=== PATIENT | female | born 1970 | race Caucasian/White ===

== ENCOUNTER 2021-05-22 17:41 | Emergency (ER) | payer OTHER, SELFPAY ==
[2021-05-22 17:48] VITALS: BP 157/74; PULSE 75; RESP 16; TEMP 36.7; O2SAT 97; BMI 38.7
[2021-05-22 17:49] VITALS: PULSE 94; O2SAT 97
[2021-05-22 17:50] VITALS: BP 157/74; PULSE 94; O2SAT 96
--- NOTE | 2021-05-22 17:52 | DI.RAD.S_ITS ---
PROCEDURE: XR ANKLE RT MIN 3V INDICATIONS: ankle injury TECHNIQUE: 3 views of the ankle were acquired. COMPARISON: None. FINDINGS: Bones: No fractures or dislocations. Ankle mortise is normally aligned. No suspicious bony lesions. Well-defined plantar calcaneal enthesophyte is seen. Soft tissues: Mild ankle soft tissue swelling is seen. No tibiotalar joint effusion. Achilles tendon appears normal. IMPRESSION: Mild ankle soft tissue swelling. No gross acute ankle fracture or dislocation. Well-defined plantar calcaneal enthesophyte. Dictated by: Jorge Luis Mohamud M.D. on 05/22/2021 at 18:13 Approved by: Jorge Luis Mohamud M.D. on 05/22/2021 at 18:14
--- NOTE | 2021-05-22 18:28 | ED_ITS ---
HPI - Extremity Injury (Lower) General Chief Complaint: Extremity Injury, Lower Stated Complaint: rt foot injury s/p fall this am Time Seen by Provider: 05/22/21 18:06 Source: patient Mode of arrival: Wheelchair Limitations: no limitations History of Present Illness HPI Narrative: Patient here with . Earlier today was stepping out of her van and lost her footing on the package car driver side. Twisted her right foot and ankle. Mostly pain to the proximal lateral foot. Has sprained her ankle and foot before but more painful this time. Says has iced and elevated her foot. Has taken Aleve. Cannot take ibuprofen. Pain continues. Touching and attempts for weight-bearing increases pain. No numbness tingling or weakness. Skin is intact. There is bruising to the lateral proximal foot. Related Data Allergies Allergy/AdvReac Type Severity Reaction Status Date / Time No Known Drug Allergies Allergy Verified 05/22/21 17:53 Review of Systems Review of Systems Narrative: GENERAL: Denies chills, fatigue, malaise, fever, sweats. HEENT: Denies sinus pain, ear pain, sore throat RESPIRATORY: Denies dyspnea, cough CARDIOVASCULAR: Denies chest pain, palpitations GASTROINTESTINAL: Denies nausea, vomiting, abdominal pain : Denies dysuria, frequency, hematuria MUSCULOSKELETAL: Complain muscle or bony pain SKIN: Denies rash, skin lesions NEUROLOGIC: Denies weakness, numbness Patient History Social History Smoking Status: Never smoker Smoking Status: Never smoker alcohol intake frequency: holidays/special occasions only Substance Use Type: does not use Exam Narrative Exam Narrative: GENERAL: in no distress, not toxic not dyspneic HEAD: Normocephalic. EXTREMITIES: No gross deformities. Examination right lower extremity nontender knee. Foot is warm soft and pink with strong pedal pulse and light touch active foot and toes. Limited flexion extension at the ankle due to pain. No gross deformity. There is edema to the lateral ankle. However there is more tenderness to the proximal lateral foot with bruising below the lateral malleolus. Mild tenderness to the lateral ankle. NEURO: AOx4. SKIN: Warm and dry PSYCH: Not anxious, is cooperative Initial Vital Signs Initial Vital Signs: Vital Signs Temperature 98.1 F 05/22/21 17:48 Pulse Rate 75 05/22/21 17:48 Respiratory Rate 16 05/22/21 17:48 Blood Pressure 157/74 H 05/22/21 17:48 Pulse Oximetry 97 05/22/21 17:48 Procedures Orthopedic Splinting/Casting Injury #1: Time of procedure: 19:30 Lower Extremity Injury Location: ankle Lower Extremity Immobilizer: AirCast Post splinting neuro exam: intact Post splinting vascular exam: intact Placed by: Nursing Additional Comments: Aircast ankle splint with Anthony wrap right ankle Course Course Course Narrative: No new issues during course of stay. Orders Ordered: Discontinued Medications Hydrocodone Bitart/Acetaminophen (Hydrocodone/Acet 5/325 Tablet) 2 tab PO NOW ONE Stop: 05/22/21 18:43 Last Admin: 05/22/21 18:53 Dose: 2 tab Documented by: [email or web address] Ondansetron HCl (Ondansetron 4 Mg Odt) 4 mg SL NOW ONE Stop: 05/22/21 18:43 Last Admin: 05/22/21 18:54 Dose: 4 mg Documented by: CTRZION Reevaluation(s) Reevaluation #1: Spoke with patient results. Pain improved with pain medication here. She does not want prescription for narcotics. She states she will take Aleve and Tylenol. Time: 19:26 Vital Signs Vital signs: Vital Signs - 8 hr 05/22/21 17:48 Temperature 98.1 F Pulse Rate 75 Respiratory Rate 16 Blood Pressure 157/74 H Pulse Oximetry 97 MDM - Extremity Injury (Lower) Differential Diagnosis Differential diagnosis: Likely ankle sprain and strain, ankle fracture and other (Foot sprain/fracture) Imaging Data Extremity x-ray #1: Radiologist's Impression: [address] [id number] ReportSigned Patient: Ruth Voss LMR#: [id number]: 1970Acct:[id number]/Sex: 50 / FDate of Service: 05/22/21Loc: EDAccession Number: [id number] Procedure: XR foot RT min 3V Ordering Provider: Riki Tinsley MD PROCEDURE: XR FOOT RT MIN 3V INDICATIONS: Pain/injury TECHNIQUE: 3 views of the foot were acquired. COMPARISON: None. FINDINGS: Bones: No fractures or dislocations. Well-defined plantar and dorsal calcaneal enthesophytes are seen. No suspicious bony lesions. Soft tissues: No tibiotalar joint effusion. Achilles tendon appears normal. IMPRESSION: No acute right foot fracture or dislocation. Small plantar and dorsal calcaneal enthesophytes. No gross soft tissue abnormality. Dictated by: Jorge Luis Mohamud M.D. on 05/22/2021 at 18:51 Approved by: Jorge Luis Mohamud M.D. on 05/22/2021 at 18:52 Extremity x-ray #2: Radiologist's Impression: [address] [id number] ReportSigned Patient: Ruth Voss LMR#: [id number]: 05/1971Acct:[id number]/Sex: 50 / FDate of Service: 05/22/21Loc: EDAccession Number: [id number] Procedure: XR ankle RT min 3V Ordering Provider: Gee Razo D.O. PROCEDURE: XR ANKLE RT MIN 3V INDICATIONS: ankle injury TECHNIQUE: 3 views of the ankle were acquired. COMPARISON: None. FINDINGS: Bones: No fractures or dislocations. Ankle mortise is normally aligned. No suspicious bony lesions. Well-defined plantar calcaneal enthesophyte is seen. Soft tissues: Mild ankle soft tissue swelling is seen. No tibiotalar joint effusion. Achilles tendon appears normal. IMPRESSION: Mild ankle soft tissue swelling. No gross acute ankle fracture or dislocation. Well-defined plantar calcaneal enthesophyte. Dictated by: Jorge Luis Mohamud M.D. on 05/22/2021 at 18:13 Approved by: Jorge Luis Mohamud M.D. on 05/22/2021 at 18:14 [facility] Narrative Medical decision making narrative: Appropriate for discharge home. Exam and imaging reassuring. Patient tolerated splint very well. Follow-up orthopedics given. Return precautions reviewed with patient. Patient aware hairline fracture may not be seen on day 1 and may need repeat imaging in 7-10 days if not improving. Discharge Plan Departure Patient Disposition: Home Clinical Impression: Ankle sprain and strain Instructions: DI for Ankle Sprain Activity Restrictions/Additional Instructions: No driving or operating machinery with injury to the ankle and foot. Call provided orthopedic office tomorrow for office recheck within a week. Use crutches and ankle splint for comfort. Continue home Aleve or Tylenol for pain. Ice and elevate ankle and foot 20 minutes at a time as needed for pain and swelling. Return if worse if any questions or concerns Referrals: Cinda Swenson MD [Physician] -
[2021-05-22] MEDS: HYDROCODONE/ACET 5/325 TABLET 2 TAB PO (18:53)
[2021-05-22] MEDS: ONDANSETRON 4 MG ODT SL (18:54)
[2021-05-22 19:33] VITALS: PULSE 79; O2SAT 96
[2021-05-22 19:34] VITALS: BP 151/77; PULSE 82; O2SAT 97
== END 2021-05-22 19:42 | disposition home or self-care (01) ==
PROVIDERS: Emergency Provider Emergency Medicine
DX: S93.401A Sprain of unspecified ligament of right ankle, initial encounter (principal); S96.911A Strain of unspecified muscle and tendon at ankle and foot level, right foot, initial encounter; X50.1XXA Overexertion from prolonged static or awkward postures, initial encounter
CPT/HCPCS: 73610; 73630; 99283

== ENCOUNTER 2024-03-25 17:42 | Emergency (ER) | payer OTHER, SELFPAY ==
[2024-03-25 17:56] VITALS: BP 175/91; PULSE 113; RESP 17; TEMP 37.4; O2SAT 97; BMI 43.0
--- NOTE | 2024-03-25 17:58 | DI.RAD.S_ITS ---
PROCEDURE: XR CHEST 1V INDICATIONS: chest pain TECHNIQUE: One view of the chest was acquired. COMPARISON: None. FINDINGS: Surgical changes and devices: None. Lungs and pleura: No consolidation. Question pulmonary vasculature engorgement. No pleural effusions or pneumothorax. Mediastinum: Mediastinal contours appear normal. Heart size is within normal limits. Bones and chest wall: No suspicious bony lesions. Overlying soft tissues appear unremarkable. IMPRESSION: Question pulmonary vasculature engorgement. Dictated by: Naif Kowalski M.D. on 03/25/2024 at 20:18 Approved by: Naif Kowalski M.D. on 03/25/2024 at 20:19
[2024-03-25 18:19] LABS: Add Manual Diff / Slide Review NO; Basophils Absolute Auto 100 /uL (0-100); Basophils Percent Auto 1.1 % (0-2); Eosinophils Absolute Auto 200 /uL (0-450); Eosinophils Percent Auto 1.3 % (2-4); Hematocrit 40.7 % (36-46); Hemoglobin 14.1 g/dL (12.0-16.0); Lymphocytes Absolute Auto 1700 /uL (1100-4500); Lymphocytes Percent Auto 13.8 % (25-40); Mean Corpuscular HGB Conc 34.6 % (30-36); Mean Corpuscular Hemoglobin 29.6 PG (26-34); Mean Corpuscular Volume 85.6 fL (80-100); Monocytes Absolute Auto 900 /uL (0-900); Monocytes Percent Auto 7.5 % (3-14); Neutrophils Absolute Auto 9300 /uL (1500-7000); Neutrophils Percent Auto 76.3 % (50-75); Platelet Count 306 X10^3/uL (150-400); Red Blood Cell Count 4.76 X10^6/uL (4.0-5.2); Red Cell Distribution Width 13.6 % (11.6-14.8); White Blood Cell Count 12.2 X10^3/uL (4.5-11.0)
[2024-03-25 18:27] LABS: INR 1.1 (0.9-1.3); Prothrombin Time 12.2 SECONDS (9.4-12.5)
[2024-03-25 18:30] LABS: PTT Partial Thromboplastin Tim 38 SECONDS (25.1-36.5)
[2024-03-25 18:35] LABS: Alanine Aminotransferase 64 IU/L (<35); Albumin 4.5 g/dL (3.5-5.0); Albumin Globulin Ratio 1.5 (1.0-2.8); Alkaline Phosphatase 95 U/L (38-126); Aspartate Aminotransferase 38 IU/L (14-36); BUN Creatinine Ratio 18.1 (6-22); Bilirubin Total 0.9 mg/dL (0.2-1.3); Blood Urea Nitrogen 13 mg/dL (7-17); Calcium 9.1 mg/dL (8.4-10.2); Carbon Dioxide 26 mmol/L (22-32); Chloride 103 mmol/L (98-107); Creatine Kinase 116 U/L (30-135); Estimated Glomerular Filt Rate > 60 mL/min (>60); Globulin 3.1 g/dL (1.7-4.1); Glucose 108 mg/dL (70-100); HEMOLYSIS < 15 (0-50); Lipase 54 U/L (23-300); Potassium 4.4 mmol/L (3.4-5.1); Sodium 137 mmol/L (137-145); Total Protein 7.6 g/dL (6.3-8.2)
[2024-03-25 18:46] LABS: Troponin I < 0.012 ng/mL (0.01-0.034)
[2024-03-25 20:23] LABS: Adenovirus Not Detected (Not Detect); B. parapertussis Not Detected (Not Detecte); Bordetella pertussis Not Detected (Not Detect); Chlamydophila pneumoniae Not Detected (Not Detect); Coronavirus 229E Not Detected (Not Detect); Coronavirus HKU1 Not Detected (Not Detect); Coronavirus NL 63 Not Detected (Not Detect); Coronavirus OC43 Not Detected (Not Detect); Human Metapneumovirus Detected (Not Detect); Human Rhinovirus/Enterovirus Not Detected (Not Detect); Influenza A Not Detected (Not Detect); Influenza B Not Detected (Not Detect); Mycoplasma pneumoniae Not Detected (Not Detect); Parainfluenza Virus 1 Not Detected (Not Detect); Parainfluenza Virus 2 Not Detected (Not Detect); Parainfluenza Virus 3 Not Detected (Not Detect); Parainfluenza Virus 4 Not Detected (Not Detect); Respiratory Syncytial Virus Not Detected (Not Detect); SARS- CoV-2 Not Detected (Not Detecte)
--- NOTE | 2024-03-25 20:32 | ED_ITS ---
HPI - Chest Pain General Chief Complaint: Chest Pain Stated Complaint: cough, vomiting, sob Time Seen by Provider: 03/25/24 18:58 Source: patient Mode of arrival: Ambulatory Limitations: no limitations History of Present Illness HPI narrative: 53-year-old female presents with nonproductive cough for 1 week. Patient states that her cough is nonproductive, constant, not controlled with [id number] cough and cold medications. Patient states that today she started to feel worse and felt like her heart rate was elevated, prompting her to be evaluated in the emergency department. Chest pressure felt only after prolonged coughing. Patient states she was occasionally coughs so hard that she will vomit. Numerous family members sick with similar symptoms at home. Related Data Previous Rx's Medication Instructions Recorded benzonatate 200 mg capsule 200 mg PO BID-TID PRN cough #30 03/25/24 caps methylprednisolone 4 mg tablets in See Rx Instructions PO .COMPLEX 03/25/24 a dose pack (Medrol (Maged)) #21 ea Allergies Allergy/AdvReac Type Severity Reaction Status Date / Time Penicillins Allergy Verified 03/25/24 17:56 Review of Systems Review of Systems Narrative: See HPI Patient History Social History Smoking Status: Never smoker Smoking Status: Never smoker alcohol intake frequency: holidays/special occasions only Substance Use Type: does not use Exam Initial Vital Signs Initial Vital Signs: Vital Signs Temperature 99.4 F 03/25/24 17:56 Pulse Rate 113 H 03/25/24 17:56 Respiratory Rate 17 03/25/24 17:56 Blood Pressure 175/91 H 03/25/24 17:56 Pulse Oximetry 97 03/25/24 17:56 Oxygen Delivery Method Room Air 03/25/24 17:56 Const: Awake, alert, no acute distress, nontoxic appearing Cardiac: Tachycardia, regular rhythm RESP: unlabored, mild inspiratory crackles bilateral bases, no wheezing GI: Soft, nontender, nondistended, no rebound, no guarding MSK: Atraumatic, full range of motion, pulses equal Skin: Warm, Dry, intact, no rashes Neuro: AO x3, CN II-XII grossly intact, moves all extremities Course Orders Ordered: Discontinued Medications Albuterol (Albuterol Hfa Prepack) 1 box [facility] ONE Stop: 03/25/24 21:55 Last Admin: 03/25/24 22:10 Dose: 1 box Documented By: ISIDRO Albuterol/Ipratropium (Albuterol/Ipratropium 3 Ml Ampul) 9 ml INH NOW ONE Stop: 03/25/24 21:08 Last Admin: 03/25/24 21:14 Dose: 9 ml Documented By: YORDY Benzonatate (Benzonatate 100 Mg Capsule) 200 mg PO NOW ONE Stop: 03/25/24 21:18 Last Admin: 03/25/24 22:10 Dose: 200 mg Documented By: ISIDRO Dexamethasone (Dexamethasone 10 Mg/Ml Vial) 10 mg IV NOW ONE Stop: 03/25/24 21:08 Last Admin: 03/25/24 21:13 Dose: 10 mg Documented By: YORDY Vital Signs Vital signs: Vital Signs - 8 hr 03/25/24 17:56 Temperature 99.4 F Pulse Rate 113 H Respiratory Rate 17 Blood Pressure 175/91 H Pulse Oximetry 97 Oxygen Delivery Method Room Air MDM - Chest Pain Lab Data 03/25/24 18:05 03/25/24 18:05 Labs: Lab Results 03/25/24 Range/Units 18:05 WBC 12.2 H (4.5-11.0) X10^3/uL RBC 4.76 (4.0-5.2) X10^6/uL Hgb 14.1 (12.0-16.0) g/dL Hct 40.7 (36-46) % MCV 85.6 (80-100) fL MCH 29.6 (26-34) PG MCHC 34.6 (30-36) % RDW 13.6 (11.6-14.8) % Plt Count 306 (150-400) X10^3/uL Neut % (Auto) 76.3 H (50-75) % Lymph % (Auto) 13.8 L (25-40) % Roane % (Auto) 7.5 (3-14) % Eos % (Auto) 1.3 L (2-4) % Baso % (Auto) 1.1 (0-2) % Neut # (Auto) 9300 H (7060-2042) /uL Lymph # (Auto) 1700 (7473-7342) /uL Roane # (Auto) 900 (0-900) /uL Eos # (Auto) 200 (0-450) /uL Baso # (Auto) 100 (0-100) /uL PT 12.2 (9.4-12.5) SECONDS INR 1.1 (0.9-1.3) APTT 38 H (25.1-36.5) SECONDS Sodium 137 (137-145) mmol/L Potassium 4.4 (3.4-5.1) mmol/L Chloride 103 (98-107) mmol/L Carbon Dioxide 26 (22-32) mmol/L BUN 13 (7-17) mg/dL Creatinine 0.72 (0.52-1.04) mg/dL Estimated GFR > 60 (>60) mL/min BUN/Creatinine Ratio 18.1 (6-22) Glucose 108 H (70-100) mg/dL Calcium 9.1 (8.4-10.2) mg/dL Magnesium 2.0 (1.6-2.3) mg/dL Total Bilirubin 0.9 (0.2-1.3) mg/dL AST 38 H (14-36) IU/L ALT 64 H (<35) IU/L Alkaline Phosphatase 95 (38-126) U/L Total Creatine Kinase 116 (30-135) U/L Troponin I < 0.012 (0.01-0.034) ng/mL Total Protein 7.6 (6.3-8.2) g/dL Albumin 4.5 (3.5-5.0) g/dL Globulin 3.1 (1.7-4.1) g/dL Albumin/Globulin Ratio 1.5 (1.0-2.8) Lipase 54 (23-300) U/L Chlamy pneumoniae PCR Not detected (Not Detect) Adenovirus (PCR) Not detected (Not Detect) B.parapertussis DNA PCR Not detected (Not Detecte) Coronavirus OC43 (PCR) Not detected (Not Detect) Coronavirus HKU1 (PCR) Not detected (Not Detect) Coronavirus 229E (PCR) Not detected (Not Detect) SARS-CoV-2 (PCR) Not detected (Not Detecte) Coronavirus NL63 (PCR) Not detected (Not Detect) Human Metapneumovir PCR Detected H (Not Detect) Influenza Type A (PCR) Not detected (Not Detect) Influenza Type B (PCR) Not detected (Not Detect) M. pneumoniae (PCR) Not detected (Not Detect) Parainfluenza 1 (PCR) Not detected (Not Detect) Parainfluenza 2 (PCR) Not detected (Not Detect) Parainfluenza 3 (PCR) Not detected (Not Detect) Parainfluenza 4 (PCR) Not detected (Not Detect) RSV (PCR) Not detected (Not Detect) Entero/Rhino (PCR) Not detected (Not Detect) Imaging Data Chest x-ray: Radiologist's Impression: PROCEDURE: XR CHEST 1V INDICATIONS: chest pain TECHNIQUE: One view of the chest was acquired. COMPARISON: None. FINDINGS: Surgical changes and devices: None. Lungs and pleura: No consolidation. Question pulmonary vasculature engorgement. No pleural effusions or pneumothorax. Mediastinum: Mediastinal contours appear normal. Heart size is within normal limits. Bones and chest wall: No suspicious bony lesions. Overlying soft tissues appear unremarkable. IMPRESSION: Question pulmonary vasculature engorgement. Dictated by: Naif Kowalski M.D. on 03/25/2024 at 20:18 Approved by: Naif Kowalski M.D. on 03/25/2024 at 20:19 [facility] Narrative Medical decision making narrative: Nontoxic patient with persistent cough, somewhat worse today. Multiple family members sick at home with similar symptoms. Questionable velcro like crackles on deep inspiration and bilateral bases. Saturating well on room air. Coughs frequently in emergency department, nonproductive. Laboratory work is reviewed, patient tested positive for human metapneumovirus. Chest x-ray with ?questionable vascular engorgement?, however patient has no history of cardiac problems, does not have any signs of volume overload, symptoms are much more consistent with viral etiology. Patient given dose of steroids, and reported improvement in symptoms with nebulizer treatment. Patient states that she has had good response to albuterol therapy in the past with upper respiratory symptoms. Albuterol sent home with the patient. Patient likely has bronchitis following viral illness. Supportive measures counseled for home. Sara Tatum sent to pharmacy of choice. Discharge Plan Departure Patient Disposition: Home Clinical Impression: Acute bronchiolitis due to human metapneumovirus (hMPV) Instructions: DI for Acute Bronchitis Activity Restrictions/Additional Instructions: Take the cough medications and inhaler as needed for comfort. Follow up with your primary care doctor. Prescriptions: New benzonatate 200 mg capsule 200 mg PO BID-TID PRN (Reason: cough) Qty: 30 0RF methylprednisolone [Medrol (Maged)] 4 mg tablets,dose pack See Rx Instructions .ROUTE .COMPLEX Qty: 21 0RF Rx Instructions: orally per package directions Referrals: ProviderOmer [Primary Care Provider] - Stand Alone Forms: Patient Portal/API
[2024-03-25] MEDS: DEXAMETHASONE 10 MG/ML VIAL IV (21:13)
[2024-03-25] MEDS: ALBUTEROL/IPRATROPIUM 3 ML AMPUL 9 ML INH (21:14)
[2024-03-25 21:20] VITALS: PULSE 110; RESP 19
[2024-03-25 21:30] VITALS: PULSE 112; RESP 13
[2024-03-25 22:00] VITALS: PULSE 126; RESP 20; O2SAT 92
[2024-03-25 22:05] VITALS: BP 120/59; PULSE 120; O2SAT 93
[2024-03-25] MEDS: BENZONATATE 100 MG CAPSULE 200 MG PO (22:10)
[2024-03-25] MEDS: ALBUTEROL HFA PREPACK 1 BOX MISC (22:10)
== END 2024-03-25 22:15 | disposition home or self-care (01) ==
PROVIDERS: Emergency Medicine; Emergency Provider Emergency Medicine
DX: J21.1 Acute bronchiolitis due to human metapneumovirus (principal); R07.9 Chest pain, unspecified; Z20.822 Contact with and (suspected) exposure to COVID-19
CPT/HCPCS: 36415; 71045; 80053; 82550; 83690; 83735; 84484; 85025; 85610; 85730; 87633; 93005; 96374; 99284; J1100

== ENCOUNTER 2024-07-08 16:58 | Emergency (ER) | payer OTHER, SELFPAY ==
[2024-07-08 17:10] VITALS: BP 207/86; PULSE 91; RESP 18; TEMP 36.4; O2SAT 98; BMI 43.0
--- NOTE | 2024-07-08 17:24 | ED.FALL ---
HPI - Fall <Laura Estrella PA-C - Last Filed: 07/08/24 20:17> General Chief Complaint: Fall Stated Complaint: Fall, knee and ankle px Time Seen by Provider: 07/08/24 17:23 History of Present Illness HPI Narrative: 53-year-old obese woman presents with concern for left knee injury and right ankle injury. Patient was walking down her driveway to move a trash can out of the way of her vehicle and accidentally rolled her right ankle and then landed squarely on her left knee. She denies hitting her head loss of consciousness or any other injuries but has been having very severe left knee pain with some swelling and bruising present since she injured herself yesterday morning. She notes she feels her right ankle is likely sprained but it is not particularly painful and ?though it is swollen I have had worse I am mostly worried about my knee. Patient denies numbness or tingling in either extremity and has been ambulating with difficulty favoring her left knee. She has tried ibuprofen for pain relief with limited improvement of symptoms. She has been elevating and has tried icing. She denies any other complaints or concerns Related Data Previous Rx's Medication Instructions Recorded benzonatate 200 mg capsule 200 mg PO BID-TID PRN cough #30 03/25/24 caps methylprednisolone 4 mg tablets in See Rx Instructions PO .COMPLEX 03/25/24 a dose pack (Medrol (Maged)) #21 ea acetaminophen 300 mg-codeine 30 mg 1 tab PO Q8H PRN pain 3 days #10 07/08/24 tablet tabs Allergies Allergy/AdvReac Type Severity Reaction Status Date / Time Penicillins Allergy Verified 03/25/24 17:56 Review of Systems <Laura Estrella PA-C - Last Filed: 07/08/24 20:17> Review of Systems Narrative: See HPI Patient History <Laura Estrella PA-C - Last Filed: 07/08/24 20:17> Social History Smoking Status: Never smoker Smoking Status: Never smoker alcohol intake frequency: holidays/special occasions only Substance Use Type: does not use Exam <Laura Estrella PA-C - Last Filed: 07/08/24 20:17> Narrative Exam Narrative: GENERAL: [53] year old patient appears stated age. Well-developed patient, in mild distress. HEAD: Atraumatic. Normocephalic. EYES: Pupils equal round and reactive. Extraocular motions intact. No scleral icterus. No injection or drainage. ENT: Nose without bleeding, purulent drainage. Airway patent. NECK: Trachea midline. CARDIOVASCULAR: Regular rate and rhythm RESPIRATORY: No increased work of breathing or respiratory distress GASTROINTESTINAL: Abdomen soft, non-tender, nondistended. EXTREMITIES: The affected left knee there is tenderness at the lateral joint line, significant tenderness over the patella with visible purplish bruising and some swelling present about the anterior knee. Negative valgus and varus stress. Patient has significant pain with passive flexion greater than 30? the right ankle has swelling at the lateral malleolus and tenderness of the lateral malleolus. As well as the ATFL. ROM is reduced 2nd to pain and swelling. No of the edema or joint tenderness. NEURO: AOx3. SKIN: No rash or erythema of visible areas Initial Vital Signs Initial Vital Signs: Vital Signs Temperature 97.5 F L 07/08/24 17:10 Pulse Rate 91 H 07/08/24 17:10 Respiratory Rate 18 07/08/24 17:10 Blood Pressure 207/86 H 07/08/24 17:10 Pulse Oximetry 98 07/08/24 17:10 Oxygen Delivery Method Room Air 07/08/24 17:10 <Kaylah Neville DO - Last Filed: 07/09/24 03:08> Initial Vital Signs Initial Vital Signs: Vital Signs Temperature 97.5 F L 07/08/24 17:10 Pulse Rate 91 H 07/08/24 17:10 Respiratory Rate 18 07/08/24 17:10 Blood Pressure 207/86 H 07/08/24 17:10 Pulse Oximetry 98 07/08/24 17:10 Oxygen Delivery Method Room Air 07/08/24 17:10 Course <Laura Estrella PA-C - Last Filed: 07/08/24 20:17> Orders Ordered: Discontinued Medications Acetaminophen/Codeine Phosphate (Codeine/Acetaminophen 30/300 Tablet) 1 tab PO NOW ONE Stop: 07/08/24 19:03 Last Admin: 07/08/24 19:23 Dose: 1 tab Documented By: DAYNE Ketorolac Tromethamine (Ketorolac 30 Mg/Ml Vial) 30 mg IM NOW ONE Stop: 07/08/24 19:03 Last Admin: 07/08/24 19:23 Dose: 30 mg Documented By: DAYNE Vital Signs Vital signs: Vital Signs - 8 hr 07/08/24 17:10 07/08/24 18:28 Temperature 97.5 F L Pulse Rate 91 H Respiratory Rate 18 Blood Pressure 207/86 H 137/82 Pulse Oximetry 98 Oxygen Delivery Method Room Air <Kaylah Neville DO - Last Filed: 07/09/24 03:08> Orders Ordered: Discontinued Medications Acetaminophen/Codeine Phosphate (Codeine/Acetaminophen 30/300 Tablet) 1 tab PO NOW ONE Stop: 07/08/24 19:03 Last Admin: 07/08/24 19:23 Dose: 1 tab Documented By: DAYNE Ketorolac Tromethamine (Ketorolac 30 Mg/Ml Vial) 30 mg IM NOW ONE Stop: 07/08/24 19:03 Last Admin: 07/08/24 19:23 Dose: 30 mg Documented By: DAYNE Vital Signs Vital signs: Vital Signs - 8 hr 07/08/24 17:10 07/08/24 18:28 Temperature 97.5 F L Pulse Rate 91 H Respiratory Rate 18 Blood Pressure 207/86 H 137/82 Pulse Oximetry 98 Oxygen Delivery Method Room Air MDM - Fall <Laura Estrella PA-C - Last Filed: 07/08/24 20:17> Differential Diagnosis Differential diagnosis: Likely other (Sprain, strain, fracture) Imaging Data Extremity x-ray #1: My Impression: Agree with Radiology interpretation Radiologist's Impression: [address] [address] XRay Report Signed Patient: Ruth Voss MR#: [id number] : 1970 Acct:[id number] Age/Sex: 53 / F Date of Service: 07/08/24 Loc: ED Accession Number: [id number] Procedure: XR knee LT 3V Ordering Provider: Laura Estrella PA-C PROCEDURE: XR KNEE LT 3V INDICATIONS: fall with swelling and pain TECHNIQUE: 3 views of the knee were acquired. COMPARISON: None. FINDINGS: Bones: Mild degenerative changes. Patellar enthesopathy. No acute displaced fracture Soft tissues: Small amount joint effusion. There is also prepatellar swelling. IMPRESSION: Mild degenerative changes and patellar enthesopathy. Small joint effusion. Prepatellar swelling. If there is high concern for further derangement, consider MRI evaluation. Dictated by: Pablo Lloyd M.D. on 07/08/2024 at 18:05 Approved by: Pablo Lloyd M.D. on 07/08/2024 at 18:06 Extremity x-ray #2: My Impression: Agree with Radiology interpretation Radiologist's Impression: [address] [address] XRay Report Signed Patient: Ruth Voss MR#: [id number] : 1970 Acct:[id number] Age/Sex: 53 / F Date of Service: 07/08/24 Loc: ED Accession Number: [id number] Procedure: XR ankle RT min 3V Ordering Provider: Laura Estrella PA-C PROCEDURE: XR ANKLE RT MIN 3V INDICATIONS: fall with swelling and pain TECHNIQUE: 3 views of the ankle were acquired. COMPARISON: [facility], CR, XR ANKLE RT MIN 3V, 05/22/2021, 18:04. FINDINGS: Bones: Mild background degenerative changes. No acute displaced fracture or dislocation. The ankle mortise appears intact. Soft tissues: Plantar calcaneal enthesopathy. Diffuse soft tissue swelling particularly adjacent to the lateral malleolus. IMPRESSION: Mild background degenerative changes. Soft tissue swelling particularly adjacent to the lateral malleolus. No displaced osseous injury. Ligamentous injury is possible. If there is high concern for further derangement, consider MRI evaluation. Dictated by: Pablo Lloyd M.D. on 07/08/2024 at 18:06 Approved by: Pablo Lloyd M.D. on 07/08/2024 at 18:07 [facility] Narrative Medical decision making narrative: This is a generally well-appearing 53-year-old woman with obesity presenting with concern for left knee injury and right ankle injury sustained yesterday morning when she rolled her right ankle and landed on her left knee. X-rays obtained today show no evidence of fracture. Patient does have quite a bit of swelling and pain about the left knee but the joint appears stable on exam. Given she has sprain both her right ankle and also injured her left knee did advise her it may be good to follow up with Orthopedics for further evaluation as she may have prolonged healing time given injuries on both sides. Attempted to place the patient in an supportive air splint boot for her ankle however none available that fit the patient well of appropriate size. She prefers a Anthony wrap and this is placed today during her visit. Also she tries a short-leg knee immobilizer but also prefers an Anthony wrap for her knee. She is provided with crutches today which she has used previously with success. Advised regarding RI CE and being nonweightbearing as much as possible though this will be challenging given injuries of both the right ankle and the left knee. Given her pain she does receive a prescription for short course of Tylenol 3 and 1 dose of this in the emergency department as well as Toradol. Return precautions provided, follow-up plan discussed, all questions answered. Discharge Plan Departure Patient Disposition: Home Clinical Impression: Right knee sprain Qualifiers: Encounter type: initial encounter Involved ligament of knee: unspecified ligament Qualified Code(s): S83.91XA - Sprain of unspecified site of right knee, initial encounter Sprain of left ankle Qualifiers: Encounter type: initial encounter Involved ligament of ankle: anterior talofibular ligament Qualified Code(s): S93.492A - Sprain of other ligament of left ankle, initial encounter Instructions: DI for Knee Sprain Activity Restrictions/Additional Instructions: *You have been diagnosed with [knee sprain on the left, ankle sprain on the right] *What to do: *Please continue to take your regular medications as directed. [ 1] New medication prescriptions sent to your pharmacy: [Tylenol 3] [ ] New medication written as a paper prescription [ ] No new medications given *Please follow up with your primary care provider in 2-3 days, call for an appointment. Let them know you were seen in the Emergency Department and that we ask that you be seen in follow up. We will electronically transmit a record of today's note if your PCP is in our system. Your x-rays today do not show any evidence of fracture of either your left knee or your right ankle. You do have a ankle sprain which we wrapped with an Anthony wrap today after discussion with you. And we also wrapped your left knee in its position of comfort with a very slight bend. You are having quite a bit of pain in your knee you do have a good amount of swelling and some bruising present, and I did prescribe some pain medicine for you for the next couple of days to be used if needed. We also gave you a shot of medicine and 1 dose of Tylenol 3 today in the emergency department as most pharmacies are closed at this time. Use rest ice compression elevation treatment do please try to stay off of this knee especially and this ankle as much as possible. I realize this may be difficult since you have an injury on each side, but do your best. Sprains heal best if you stay off of them and treat them well initially. If over the next 5-7 days you do not feel like her symptoms are improving despite staying off of your injured legs please make sure you seek re-evaluation. I hope you feel better soon. *If you do not have a primary care provider please contact the [facility] Resource line at [phone]. They will ask some questions about your medical history and help get you set up with a doctor in the community. *Return to Emergency Department if you should have any new, worsening or concerning symptoms, such as [fever greater than 101 F, shaking chills, worsening pain, persistent vomiting or other bothersome symptoms] Prescriptions: New acetaminophen-codeine 300-30 mg tablet 1 tab PO Q8H PRN (Reason: pain) 3 Days Qty: 10 0RF No Action benzonatate 200 mg capsule 200 mg PO BID-TID PRN (Reason: cough) Qty: 30 0RF methylprednisolone [Medrol (Maged)] 4 mg tablets,dose pack See Rx Instructions .ROUTE .COMPLEX Qty: 21 0RF Rx Instructions: orally per package directions Referrals: Josue Mckeon MD [Physician] - Provider,Omer HUMPHREYS [Primary Care Provider] - Stand Alone Forms: Patient Portal/API ED Sign-out <Kaylah Neville DO - Last Filed: 07/09/24 03:08> Cosign ED Attending Cosquocature Attestation: I was immediately available in the department for consultation.
--- NOTE | 2024-07-08 17:33 | DI.RAD.S_ITS ---
PROCEDURE: XR KNEE LT 3V INDICATIONS: fall with swelling and pain TECHNIQUE: 3 views of the knee were acquired. COMPARISON: None. FINDINGS: Bones: Mild degenerative changes. Patellar enthesopathy. No acute displaced fracture Soft tissues: Small amount joint effusion. There is also prepatellar swelling. IMPRESSION: Mild degenerative changes and patellar enthesopathy. Small joint effusion. Prepatellar swelling. If there is high concern for further derangement, consider MRI evaluation. Dictated by: Pablo Lloyd M.D. on 07/08/2024 at 18:05 Approved by: Pablo Lloyd M.D. on 07/08/2024 at 18:06
--- NOTE | 2024-07-08 17:33 | DI.RAD.S_ITS ---
PROCEDURE: XR ANKLE RT MIN 3V INDICATIONS: fall with swelling and pain TECHNIQUE: 3 views of the ankle were acquired. COMPARISON: [facility], CR, XR ANKLE RT MIN 3V, 05/22/2021, 18:04. FINDINGS: Bones: Mild background degenerative changes. No acute displaced fracture or dislocation. The ankle mortise appears intact. Soft tissues: Plantar calcaneal enthesopathy. Diffuse soft tissue swelling particularly adjacent to the lateral malleolus. IMPRESSION: Mild background degenerative changes. Soft tissue swelling particularly adjacent to the lateral malleolus. No displaced osseous injury. Ligamentous injury is possible. If there is high concern for further derangement, consider MRI evaluation. Dictated by: Pablo Lloyd M.D. on 07/08/2024 at 18:06 Approved by: Pablo Lloyd M.D. on 07/08/2024 at 18:07
[2024-07-08 18:28] VITALS: BP 137/82
[2024-07-08] MEDS: KETOROLAC 30 MG/ML VIAL IM (19:23)
[2024-07-08] MEDS: CODEINE/ACETAMINOPHEN 30/300 TABLET 1 TAB PO (19:23)
== END 2024-07-08 19:56 | disposition home or self-care (01) ==
PROVIDERS: Emergency Provider Student in an Organized Health Care Education/Training Program
DX: S83.91XA Sprain of unspecified site of right knee, initial encounter (principal); S93.492A Sprain of other ligament of left ankle, initial encounter; X50.1XXA Overexertion from prolonged static or awkward postures, initial encounter; E66.9 Obesity, unspecified; Z68.41 Body mass index [BMI] 40.0-44.9, adult
CPT/HCPCS: 73562; 73610; 96372; 99283; 99284; J1885

== ENCOUNTER → 2025-03-07 16:49 | Outpatient (CLI) | payer OTHER, SELFPAY ==
--- NOTE | 2025-03-07 16:51 | DI.MRI.S_ITS ---
PROCEDURE: MR KNEE LT WO CON INDICATIONS: LT KNEE PAIN TECHNIQUE: Noncontrast sagittal PD fast spin echo and T2 fast spin echo with fat saturation, sagittal 3-D FLASH with fat saturation; coronal T1 spin echo and PD fast spin echo with fat saturation, and axial PD fast spin echo with fat saturation through the knee. COMPARISON: None. FINDINGS: Image quality: Diagnostic. Some images are limited by patient motion artifacts, low [id number] Menisci: Mild increased signal in the midbody of the medial meniscus commonly may represent internal globular degenerative signal distal at definitively exit to a surface however horizontal tear could have a similar appearance. The medial meniscus is mildly displaced medially on the coronal images. Mild meniscocapsular separation posteriorly. The anterior and posterior horns of the lateral meniscus are normal in size and signal. Cruciate ligaments: The anterior and posterior cruciate ligaments appear intact. Medial structures: The medial collateral ligament appears intact. The semimembranosus tendon insertion is intact. Visualized portions of the pes anserinus tendons appear normal. No abnormal bursal fluid. Lateral structures: The lateral collateral ligament mild increased T2 weighted signal and thinning of the mid to distal lateral collateral ligament suggests injury/strain some of which may be chronic. Mild increased T2 weighted signal/edema adjacent to the distal biceps tendon, popliteofibular ligament, and popliteus tendons. appear intact. Iliotibial band appears normal. Anterior structures: Nonspecific subcutaneous tissue edema anterior to the patella and the patellar ligament. The quadriceps and patellar tendons appear intact. Patellar alignment is normal. No femoral trochlear dysplasia or ventral trochlear prominence. No edema in the infrapatellar fat pad. Bones and cartilage: Mild chondromalacia patella with subtle irregularities in the medial and lateral patellar facets and medial femoral condyle. Moderate degenerative changes with diffuse cartilaginous thinning in the medial greater than lateral compartments without focal cartilage defect, without significant bone edema, no fracture or dislocation. Joint space: Moderate knee joint effusion. No popliteal cyst. IMPRESSION: Degenerative changes versus horizontal tear in the medial meniscus mid body as discussed above. Injury/strain lateral collateral ligament, distal biceps tendon, popliteus tendon posterolaterally. Degenerative changes with diffuse cartilaginous thinning in the medial, patellofemoral greater than lateral compartments. Moderate knee joint effusion Dictated by: Zeyad Torres M.D. on 03/08/2025 at 21:30 Approved by: Zeyad Torres M.D. on 03/08/2025 at 21:46
== END ==
PROVIDERS: Referring Provider Family Medicine; Visit Provider Family Medicine
DX: S83.422A Sprain of lateral collateral ligament of left knee, initial encounter (principal); S86.112A Strain of other muscle(s) and tendon(s) of posterior muscle group at lower leg level, left leg, initial encounter; M25.462 Effusion, left knee; M25.562 Pain in left knee; X58.XXXA Exposure to other specified factors, initial encounter
CPT/HCPCS: 73721